=== PATIENT | female | born 1990 | race Caucasian/White ===

== ENCOUNTER → 2023-12-11 15:35 | Outpatient (REF) | payer OTHER, SELFPAY | LOC: RAD 15:35 | PROVIDERS: ATTENDING PHYSICIAN Nurse Practitioner Family; FAMILY PHYSICIAN Family Medicine | DX: O26.851 Spotting complicating pregnancy, first trimester (principal) | CPT/HCPCS: 76801 ==

== ENCOUNTER → 2024-01-19 16:02 | Outpatient (REF) | payer OTHER, SELFPAY | LOC: PNTC 16:02 | PROVIDERS: ATTENDING PHYSICIAN Obstetrics & Gynecology | DX: Z36.0 Encounter for antenatal screening for chromosomal anomalies (principal) | CPT/HCPCS: 76801; 76813 ==

== ENCOUNTER → 2024-03-17 15:54 | Outpatient (REF) | payer OTHER, SELFPAY | LOC: PNTC 15:54 | PROVIDERS: ATTENDING PHYSICIAN Obstetrics & Gynecology | DX: O35.5XX0 Maternal care for (suspected) damage to fetus by drugs, not applicable or unspecified (principal); O99.210 Obesity complicating pregnancy, unspecified trimester | CPT/HCPCS: 76811 ==

== ENCOUNTER 2024-07-22 16:10 | Observation (INO) | payer OTHER, SELFPAY ==
[2024-07-22 16:36] LABS: % Basophils 0.2 % (0-2); % Eosinophils 0.6 % (0-6); % Immature Granulocytes 0.9 % (0-0.5); % Lymphocytes 16.5 % (20.5-51.1); % Monocytes 8.5 % (1.7-9.3); % Neutrophils 73.3 % (42.2-75.2); Absolute Eosinophils 0.1 10^3/uL (0-0.7); Absolute Immature Granulocytes 0.1 10^3/uL (0-0.05); Absolute Lymphocytes 1.6 10^3/uL (1.2-3.4); Absolute Monocytes 0.8 10^3/uL (0.1-0.6); Absolute Neutrophils 7.3 10^3/uL (1.4-6.5); Hematocrit 35.1 % (37.0-47.0); Hemoglobin 12.4 g/dL (12.0-16.0); Mean Corp Hgb Conc. 35.3 g/dL (33.0-37.0); Mean Corpuscular Hgb 31.3 pg (27.0-31.0); Mean Corpuscular Volume 88.6 fL (81.0-99.0); Mean Platelet Volume 9.2 fL (7.4-10.4); Nucleated Red Blood Cells % 0 %; Platelet Count 209 10^3/uL (130-400); Red Blood Cell Count 3.96 10^6/uL (4.20-5.40); Red Cell Dist. Width 13.5 % (11.5-14.5); White Blood Cell Count 9.9 10^3/uL (4.8-10.8)
[2024-07-22 16:53] LABS: ALT (SGPT) 12 U/L (0-35); AST (SGOT) 21 U/L (14-36); Albumin 3.6 g/dl (3.5-5.0); Alkaline Phosphatase 130 U/L (38-126); Blood Urea Nitrogen 9 mg/dl (7-17); Calcium 9.9 mg/dl (8.4-10.2); Carbon Dioxide 22 mmol/L (22-30); Chloride 105 mmol/L (98-107); Glucose 99 mg/dl (70-99); Potassium 4.4 mmol/L (3.5-5.1); Sodium 138 mmol/L (135-145); Total Bilirubin 0.7 mg/dl (0.2-1.3); Total Protein 6.1 g/dl (6.3-8.2); eGFR > 60.00
[2024-07-22 16:55] VITALS: BP 131/82; BMI 33.7
[2024-07-22 17:42] LABS: Urine Protein 6 mg/dl
[2024-07-22 17:43] LABS: Protein/creatinine Ratio 0.1
== END 2024-07-22 17:55 | disposition home or self-care (01) ==
LOC: PNTC-IN 16:10
PROVIDERS: Obstetrics & Gynecology; ADMITTING PHYSICIAN Obstetrics & Gynecology
DX: O14.03 Mild to moderate pre-eclampsia, third trimester (principal); Z3A.38 38 weeks gestation of pregnancy; J30.1 Allergic rhinitis due to pollen; Z88.0 Allergy status to penicillin; O99.343 Other mental disorders complicating pregnancy, third trimester; F41.9 Anxiety disorder, unspecified
CPT/HCPCS: 59025; 80053; 82570; 84156; 85025; G0378

== ENCOUNTER 2024-07-23 07:01 | Observation (INO) | payer OTHER, SELFPAY ==
[2024-07-23 08:00] VITALS: BP 124/81; BMI 33.7
== END 2024-07-23 11:47 | disposition home or self-care (01) ==
LOC: LDRP 07:01
PROVIDERS: ADMITTING PHYSICIAN Obstetrics & Gynecology
DX: O47.1 False labor at or after 37 completed weeks of gestation (principal); Z3A.38 38 weeks gestation of pregnancy; O99.343 Other mental disorders complicating pregnancy, third trimester; F41.9 Anxiety disorder, unspecified; O99.820 Streptococcus B carrier state complicating pregnancy; Z88.0 Allergy status to penicillin
CPT/HCPCS: 36415; 86850; 86900; 86901; G0378

== ENCOUNTER 2024-07-23 22:12 | Inpatient (IN) | payer OTHER, SELFPAY ==
[2024-07-23 22:59] VITALS: BP 126/76; BMI 33.7
[2024-07-23] MEDS: LR 1000 IV (23:57)
[2024-07-24 00:30] LABS: % Basophils 0.4 % (0-2); % Eosinophils 0.4 % (0-6); % Immature Granulocytes 1.1 % (0-0.5); % Lymphocytes 17.4 % (20.5-51.1); % Monocytes 8.4 % (1.7-9.3); % Neutrophils 72.3 % (42.2-75.2); Absolute Immature Granulocytes 0.1 10^3/uL (0-0.05); Absolute Lymphocytes 1.7 10^3/uL (1.2-3.4); Absolute Monocytes 0.8 10^3/uL (0.1-0.6); Absolute Neutrophils 7.1 10^3/uL (1.4-6.5); Hematocrit 34.2 % (37.0-47.0); Hemoglobin 12.1 g/dL (12.0-16.0); Mean Corp Hgb Conc. 35.4 g/dL (33.0-37.0); Mean Corpuscular Hgb 31.5 pg (27.0-31.0); Mean Corpuscular Volume 89.1 fL (81.0-99.0); Mean Platelet Volume 9.5 fL (7.4-10.4); Nucleated Red Blood Cells % 0 %; Platelet Count 214 10^3/uL (130-400); Red Blood Cell Count 3.84 10^6/uL (4.20-5.40); Red Cell Dist. Width 13.6 % (11.5-14.5); White Blood Cell Count 9.8 10^3/uL (4.8-10.8)
[2024-07-24] MEDS: ANCEF 10 IV (00:36)
[2024-07-24] MEDS: SUBLIMAZE 100 MCG EPIDURAL (00:57)
[2024-07-24] MEDS: FENTANYL/BUPIVACAINE 100 EPIDURAL ×2 (00:58→08:35)
[2024-07-24] MEDS: LR 1000 IV (04:06)
[2024-07-24] MEDS: ANCEF 5 IV (08:12)
[2024-07-24] MEDS: TYLENOL 650 MG PO ×4 (10:46→23:55)
[2024-07-24] MEDS: MOTRIN 600 MG PO ×3 (10:46→23:55)
[2024-07-25 05:20] LABS: Hematocrit 33.8 % (37.0-47.0); Hemoglobin 11.8 g/dL (12.0-16.0)
[2024-07-25] MEDS: TYLENOL 650 MG PO ×3 (06:34→20:31)
[2024-07-25] MEDS: MOTRIN 600 MG PO ×3 (06:35→20:31)
[2024-07-25] MEDS: SENOKOT-S 1 TABLET PO (12:36)
[2024-07-26] MEDS: MOTRIN 600 MG PO ×2 (02:44→08:48)
[2024-07-26] MEDS: TYLENOL 650 MG PO (02:44)
[2024-07-27 11:25] LABS: Syphilis/T. pallidum Ab Reflex Negative (Negative)
== END 2024-07-26 14:30 | disposition home or self-care (01) | DRG 807 ==
LOC: LDRP 22:12
PROVIDERS: Student in an Organized Health Care Education/Training Program; ADMITTING PHYSICIAN Obstetrics & Gynecology
PROC: 0KQM0ZZ Repair Perineum Muscle, Open Approach (ICD-10-PCS; 2024-07-24)
PROC: 10907ZC Drainage of Amniotic Fluid, Therapeutic from Products of Conception, Via Natural or Artificial Opening (ICD-10-PCS; 2024-07-24)
PROC: 6A550ZT Pheresis of Cord Blood Stem Cells, Single (ICD-10-PCS; 2024-07-24)
PROC: 10E0XZZ Delivery of Products of Conception, External Approach (ICD-10-PCS; 2024-07-24)
DX: O77.0 Labor and delivery complicated by meconium in amniotic fluid (principal); Z37.0 Single live birth; J30.1 Allergic rhinitis due to pollen; O70.1 Second degree perineal laceration during delivery; Z3A.39 39 weeks gestation of pregnancy; O99.344 Other mental disorders complicating childbirth; F41.9 Anxiety disorder, unspecified; O99.824 Streptococcus B carrier state complicating childbirth; Z88.0 Allergy status to penicillin
CPT/HCPCS: 88307; 85014; 85018; 85025; 86780; 86850; 86900; 86901

== ENCOUNTER 2025-05-02 09:55 | Emergency (ER) | payer OTHER, SELFPAY ==
[2025-05-02 10:07] VITALS: BP 131/93
[2025-05-02] MEDS: NSS 1000 IV (11:02)
[2025-05-02 11:18] LABS: % Basophils 0.3 % (0-2); % Eosinophils 0.5 % (0-6); % Immature Granulocytes 0.3 % (0-0.5); % Lymphocytes 16.3 % (20.5-51.1); % Monocytes 4.8 % (1.7-9.3); % Neutrophils 77.8 % (42.2-75.2); Absolute Lymphocytes 1.4 10^3/uL (1.2-3.4); Absolute Monocytes 0.4 10^3/uL (0.1-0.6); Absolute Neutrophils 6.7 10^3/uL (1.4-6.5); Hematocrit 35.9 % (37.0-47.0); Hemoglobin 12.3 g/dL (12.0-16.0); Mean Corp Hgb Conc. 34.3 g/dL (33.0-37.0); Mean Corpuscular Hgb 30.6 pg (27.0-31.0); Mean Corpuscular Volume 89.3 fL (81.0-99.0); Nucleated Red Blood Cells % 0 %; Platelet Count 349 10^3/uL (130-400); Red Blood Cell Count 4.02 10^6/uL (4.20-5.40); Red Cell Dist. Width 12.3 % (11.5-14.5); White Blood Cell Count 8.6 10^3/uL (4.8-10.8)
[2025-05-02 11:22] LABS: Urine Albumin Negative (Neg - Trace); Urine Bilirubin Negative (Negative); Urine Character Clear (Clear); Urine Color Yellow; Urine Glucose Negative (Negative); Urine Ketone Negative (Negative); Urine Leukocyte Negative (Negative); Urine Nitrite Negative (Negative); Urine Occult Blood 1+ (Negative); Urine Specific Gravity 1.015 (<1.030); Urine Urobilinogen Negative (Neg - 1+)
[2025-05-02 11:48] LABS: HCG, Serum Qualitative Screen Positive
[2025-05-02 11:59] LABS: Urine Amorphous Seen; Urine Mucus Many
[2025-05-02 12:01] LABS: Urine Red Blood Cell 0-2 /HPF (0-2); Urine White Cell 0-2 /HPF (0-5)
--- NOTE | 2025-05-02 12:05 | ED.GENMED ---
History of Present Illness
General
Chief Complaint: Abdominal Pain
Source: patient
Exam Limitations: none
Time Seen by Provider: 05/02/25 10:44
Nursing documentation reviewed up to this point in time: agreed with
History of Present Illness
History of Present Illness:
35 yo female with hx normal vaginal delivery 07/24/24, presents for constant pain mid lower abdomen for the past 5 days, feels like gas, she is due for her period this week. She did have an episode of significant pain lasting about an hour with
spotting of 1 blood clot last week, she just thought she was getting her period early but then no further vaginal discharge. The pain has been constant but to a lesser degree.
Past History
Past History
ED Past Medical History: None
Social History
Tobacco: Non-smoker
Alcohol: Occasional
Personal:
Living: with family
Employment: Not employed
Review of Systems
Review of Systems
Allergies reviewed?: Yes
All Other Systems: ROS reviewed and negative except as documented in HPI and ROS
Constitutional: Denies fever
Respiratory: Denies trouble breathing
Cardiac: Denies chest pain
ABD/GI: Reports abdominal pain; Denies nausea, vomiting, diarrhea, constipated or anorexia
: Reports bleeding (1 episode with clot last week, none since); Denies dysuria, frequency or difficulty voiding
Musculoskeletal: Reports no symptoms
Skin: Reports no symptoms
Neurological: Reports no symptoms
Phy Exam
Physical Exam
Physical Exam:
GENERAL: No acute distress. A&Ox3.
CONSTITUTIONAL: Afebrile.
RESPIRATORY: Regular respirations, nonlabored, lungs clear.
CARDIOVASCULAR: Regular rate and rhythm, no murmurs, no rubs.
GI: Soft, nontender, normal BS
MUSCULOSKELETAL: Moves with ease. Well perfused.
SKIN: Warm, dry, pink
PSYCH: Normal mood and affect. Well kept, interactive and appropriate
NEUROLOGIC: Awake, alert and oriented. No focal neurological deficits
Course
Orders/Labs/Results
Orders:
Orders
05/02/25 10:45
Test Result ONCE
05/02/25 10:51
0.9% Sodium Chloride 1000 ml [Nss] 1,000 ml IV BOLUS
05/02/25 11:08
Beta HCG Quantitative Urgent
Is this a screen?: No
Comment: ADD ON
Complete Blood Count/With Diff Urgent
Comprehensive Metabolic Panel Urgent
HCG, Serum Qualitative Screen Urgent
Urinalysis Reflex To Culture Urgent
Specimen Description:
Date Specimen was Collected: 05/02/25
Time Specimen was Collected: 10:52
Urine Microscopic Reflex Cult Urgent
05/02/25 11:50
Add On- LAB Urgent
Tests Added?: beta HCG serum
05/02/25 12:02
US W Transvaginal Urgent
Reason For Exam: spotting during early preg
Abnormal Lab Results
05/02/25
11:08
RBC 4.02 L 10^6/uL
(4.20-5.40)
Hct 35.9 L %
(37.0-47.0)
Absolute Neuts (auto) 6.7 H 10^3/uL
(1.4-6.5)
Neutrophils % 77.8 H %
(42.2-75.2)
Lymphocytes % 16.3 L %
(20.5-51.1)
Chloride 108 H mmol/L
(98-107)
Glucose 121 H mg/dl
(70-99)
Ur Occult Blood Reflex 1+ A
(Negative)
05/02/25 11:08
05/02/25 11:08
Vital Signs
Initial and Last Documented VS:
Initial Vital Signs
Temp Pulse Resp BP Pulse Ox
98.8 F 113 18 131/93 98
05/02/25 10:07 05/02/25 10:07 05/02/25 10:07 05/02/25 10:07 05/02/25 10:07
Last Documented Vital Signs
Temp Pulse Resp BP Pulse Ox
98.2 F 107 16 138/79 100
05/02/25 13:05 05/02/25 13:05 05/02/25 14:00 05/02/25 13:05 05/02/25 13:05
MDM/Problems Addressed
Differential Diagnosis Includes:
The Differential Diagnosis includes, in no particular order and is not limited to:
1. Early
2. subchorionic hemorrhage
3. Ovarian cyst
4. Ectopic
5. Threatened miscarriage
6. Torsion
7. Urinary tract infection
MDM/Problems Addressed:
35 yo female with hx normal vaginal delivery 07/24/24, presents for constant pain mid lower abdomen for the past 5 days, feels like gas, she is due for her period this week. She did have an episode of significant pain lasting about an hour with
spotting of 1 blood clot last week, she just thought she was getting her period early but then no further vaginal discharge. The pain has been constant but to a lesser degree.
12:00 p.m.
CBC normal
CMP normal
U/A neg
HCG positive
Beta quant 465.49
1:00 p.m.
US pelvis radiology report read: IMPRESSION:
No intrauterine gestational sac is identified. Given the provided history of a positive hCG/early , this raises possibility of of unknown location.
There is a left adnexal mass measuring up to 7.2 cm, with internal blood flow identified. [place] to represent asymmetric heterogeneous enlargement of the left ovary; cannot exclude intermittent torsion in the proper clinical setting. However, other
heterogeneous solid adnexal mass cannot be entirely excluded.
Pt informed of results, consulted Dr. Burrell.
3:[address] Burrell in, wrote rx for repeat HCG in 3 days.
Still unclear diagnosis, Dr. Burrell recommended OR for exploration but pt and decline and would rather do serial HCG, to return if worsel
Pt is not uncomfortable, no sig pain so not really consistent with torsion
Stable for discharge
Patient ambulated out with normal gait at discharge
*Pulse Oximetry
SaO2: 98
Oxygen Mode of Delivery: Room air
Patient hypoxic: not evaluated
*Critical Care Note
Total Time (30-74mins, 75-104mins- exclusive of procedures): Not Applicable
ED Attending Note
-
Portions of this chart may have been created with voice recognition software.� Occasional wrong word or��sound alike� substitutions may have occurred due to the inherent limitations of voice recognition software.
Discharge Plan
Departure
Patient Disposition: Home (Routine Discharge)
Date of Disposition: 05/02/25
Time of Disposition: 15:38
Patient with high blood pressure during this ER visit?: No
Condition: Good
Discharge Problem:
Abdominal pain, Abnormal vaginal bleeding
Instructions: Ectopic - ED discharge instructions, Abdominal Pain
Prescriptions:
No Action
sertraline 100 MG tablet
100 mg PO BID
PNV cmb#95-ferrous fumarate-FA [] 1 EACH tablet
1 tab PO DAILY
Zyrtec
10 mg PO DAILY
acetaminophen 325 mg Tablet
650 mg PO Q4HPRN PRN (Reason: mild pain) Qty: 0 0RF
ibuprofen 600 mg Tablet
600 mg PO Q6HPRN PRN (Reason: moderate pain/cramps) Qty: 0 0RF
Referrals:
Kathryn Coleman CRNP [Family Provider, Internal Medicine]
Carmelina Burrell MD [Active, Gynecology] - Keep scheduled appt
Activity Restrictions/Additional Instructions:
As we discussed, and as you discussed with Dr. Yap, since there is a chance of an ectopic I have provided you with an information and instructions on ectopic FYI
Return here immediately for worsening pain, feeling faint, or feeling worse in any way.
Have your HCG rechecked in 3 days.
Interventions
Interventions:
*Risk Screen - Suicide Last Done: 05/02/25 11:13
*General Assessment Last Done: 05/02/25 11:13
*Neglect/Abuse Screening Last Done: 05/02/25 11:13
*ED- Fall Risk Assessment Last Done: 05/02/25 11:13
*Nursing Disposition Last Done: 05/02/25 15:48
VZ-Merupd-Rrkjtlnfcu Assessment Last Done: 05/02/25 11:13
Discharge Date and Time
Discharge Date/Time: 05/02/25 16:08
Print Language: ARABIC
[2025-05-02 12:39] LABS: ALT (SGPT) 15 U/L (0-35); AST (SGOT) 18 U/L (14-36); Albumin 4.6 g/dl (3.5-5.0); Alkaline Phosphatase 54 U/L (38-126); Blood Urea Nitrogen 13 mg/dl (7-17); Calcium 9.6 mg/dl (8.4-10.2); Carbon Dioxide 25 mmol/L (22-30); Chloride 108 mmol/L (98-107); Glucose 121 mg/dl (70-99); Potassium 4.2 mmol/L (3.5-5.1); Sodium 140 mmol/L (135-145); Total Bilirubin 0.8 mg/dl (0.2-1.3); Total Protein 7.3 g/dl (6.3-8.2); eGFR > 60.00
[2025-05-02 13:00] LABS: Beta HCG Quantitative 465.49 mIU/ml
[2025-05-02 13:05] VITALS: BP 138/79
--- NOTE | 2025-05-02 21:43 | CON.MD ---
Consultation - Medical
-
35yo presented to the ER due to pelvic pain/cramping. This initially started 5 days ago at which time it was intense and she passed a small clot. Since then had no further VB. but has persistent discomfort, never as bad as the first day. Took
tylenol and motrin but neither has made much impact. She has not received any medication while in the ER. She denies n/v, +loose BM.
she was also incidentally found to be today- HCG 465. She was not trying to conceive. She states she had a period 04/07 that was later than expected and heavier than expected so she is not sure if she should count this as her period. She had
intercourse on 03/23 and again a week ago.
PMHx: None
PSHx: wisdom teeth
POBHx: 2021, 2023
FHx: Paternal Aun & cousint- BReast [place]
SHx:Occ Etoh. No ill/tob
Meds: None
ALL: PCN, Pollen extract
vitals and Labs: see below
Gen: patient sitting up in bed, appears comfortable
Abd: soft, mild general ttp in the lower abdomen. No r/g
Pelvic US:
Uterus measures 9.5 x 3.7 x 4.6 cm. No uterine mass.
The endometrium measures 10.5 mm. Trilaminar echogenic appearance. No intrauterine gestational sac identified.
The right ovary measures 2.2 x 1.5 x 1.3 cm. Few tiny follicles. No right adnexal mass identified. Ovarian blood flow documented.
The left adnexa, there is a heterogeneous echogenic mass measuring 7.2 x 5 x 4.7 cm. Blood flow is identified associated with this structure. This felt to represent asymmetric heterogeneous enlargement left ovary, though other heterogeneous solid
adnexal mass cannot be entirely excluded.
No free pelvic fluid identified.
IMPRESSION:
No intrauterine gestational sac is identified. Given the provided history of a positive hCG/early , this raises possibility of of unknown location.
There is a left adnexal mass measuring up to 7.2 cm, with internal blood flow identified. [place] to represent asymmetric heterogeneous enlargement of the left ovary; cannot exclude intermittent torsion in the proper clinical setting. However, other
heterogeneous solid adnexal mass cannot be entirely excluded.
A/P: 35yo with Abdominal Pain and adnexal Mass
I reviewed the imaging with the Radiologist. He says the mass has more of a solid appearance not a cystic appearance- which he would see more with an ectopic . The patient does not clinically present as a torsion. I asked if this is
possible to be a germ cell tumor and he said it could be possible.
I spoke with patient and her . I explained that as of right now it is unclear exactly what is going on. There is concern that this could be an ectopic vs swollen ovary associated with torsion vs ovarian cyst/mass. I suggested we
proceed with laparoscopy now as this will at the very least allow us to evaluate for torsion vs tubal ectopic and we can manage this surgically. I said another option, given that she is otherwise clinically stable and does not clinically present as
a torsion, is to trend her HCG- repeat in 2 days. (05/04 at Hospital outpatient Lab). If this does not appropriately rise then ectopic will be the working diagnosis and we will bring her back in the hospital to discuss management. I
explained if we went with option 2, and this is an ectopic, then there is a risk for tubal rupture and I explained reasons to immediately return to the ER. If her HCG rises appropriately and we are eventually able to safely r/o an ectopic, then we
will still need to further evaluate this adnexal mass.
Patient and ultimately want to wait and repeat the HCG in 2 days.
Consultation
-
Date/Time Consultation Requested: 05/02/25, 1315
Date/Time Consultation Performed: 05/02/25. 1500
Requesting Provider: Laurence Motley
Performing Provider: Morris
Reason for Consultation: Pelvic Mass, elevated HCG
Vital Signs / Labs
-
Vital Signs and Labs:
Temp Pulse Resp BP Pulse Ox
98.2 F 107 16 138/79 100
05/02/25 13:05 05/02/25 13:05 05/02/25 14:00 05/02/25 13:05 05/02/25 13:05
05/02/25 11:08
05/02/25 11:08
05/02/25
11:08
RBC 4.02 L
Hct 35.9 L
Absolute Neuts (auto) 6.7 H
Neutrophils % 77.8 H
Lymphocytes % 16.3 L
Chloride 108 H
Glucose 121 H
Ur Occult Blood Reflex 1+ A
HCG 465
== END 2025-05-02 16:08 | disposition home or self-care (01) ==
LOC: EMR 09:55
PROVIDERS: Registered Nurse; EMERGENCY PHYSICIAN Emergency Medicine; FAMILY PHYSICIAN Nurse Practitioner Adult Health
DX: O99.891 Other specified diseases and conditions complicating pregnancy (principal); R10.9 Unspecified abdominal pain; O20.9 Hemorrhage in early pregnancy, unspecified
CPT/HCPCS: 99284; 76801; 76817; 80053; 81003; 81015; 84702; 84703; 85025

== ENCOUNTER → 2025-05-04 08:34 | Outpatient (REF) | payer BC, SELFPAY ==
[2025-05-04 10:02] LABS: Blood Urea Nitrogen 12 mg/dl (7-17); Calcium 9.7 mg/dl (8.4-10.2); Carbon Dioxide 25 mmol/L (22-30); Chloride 111 mmol/L (98-107); Glucose 122 mg/dl (70-99); Potassium 4.5 mmol/L (3.5-5.1); Sodium 143 mmol/L (135-145); eGFR > 60.00
[2025-05-04 10:19] LABS: Beta HCG Quantitative 316.17 mIU/ml
[2025-05-04 10:30] LABS: Glycohemoglobin (HgbA1c) 5.2 % (4.0-5.6)
[2025-05-04 14:49] LABS: LDH 202 U/L (120-246)
[2025-05-05 14:17] LABS: CA 125 23.9 U/mL (0-35)
[2025-05-05 18:46] LABS: AFP Male/Tumor Marker 1.38 ng/ml
== END ==
LOC: REG 08:34
PROVIDERS: ATTENDING PHYSICIAN Obstetrics & Gynecology; FAMILY PHYSICIAN Nurse Practitioner Adult Health
DX: O00.102 Left tubal pregnancy without intrauterine pregnancy (principal); Z00.00 Encounter for general adult medical examination without abnormal findings; R73.01 Impaired fasting glucose
CPT/HCPCS: 36415; 80048; 82105; 82378; 83036; 83615; 84702; 86304

== ENCOUNTER → 2025-05-06 20:39 | Outpatient (REF) | payer BC, SELFPAY ==
[2025-05-06 11:44] LABS: Beta HCG Quantitative 192.81 mIU/ml
== END ==
LOC: MRI 3T 20:39
PROVIDERS: ATTENDING PHYSICIAN Obstetrics & Gynecology
DX: N83.202 Unspecified ovarian cyst, left side (principal); O00.102 Left tubal pregnancy without intrauterine pregnancy
CPT/HCPCS: 36415; 72195; 84702